=== PATIENT | female | born 1935 | race Caucasian/White ===

== ENCOUNTER 2021-08-13 10:09 | Emergency (ER) | payer MEDICARE, OTHER ==
[~2021-08-13] VITALS: Ht 162.6 cm; Wt 75.0 kg
[2021-08-13 10:15] VITALS: BP 180/84
[2021-08-13] MEDS ORDERED: PRED20TA PO (10:32)
--- NOTE | 2021-08-13 10:32 | PHYS DOC ---
Past Medical History Past Medical History: Hypertension Past Surgical History: No Surgical History Smoking Status: Never Smoker Alcohol Use: None Drug Use: None General Adult EDM: Chief Complaint: FINGER INJURY HPI: HPI: Patient is a 86 year old female who presents with approximately 1 week of right middle finger swelling 2+ without injury. She states that she does have rheumatoid arthritis and it is what it feels like to her. She can bend at all joints and extend it fully. Is not tender. She states only hurts when she bends the finger. She states that her vice president lending just retired. She states she is trying to get into another one but they are not returning her phone calls. She does have a primary care provider that she has not been to for this. She states that her retired vice president lending was trying to get her off the methotrexate because she had not had a flare in a while so she had some at home. She states she start taking that again recently and ibuprofen. She is denying pain at this time. She denies numbness or tingling or weakness in the joint. Review of Systems: Review of Systems: Constitutional: Denies fever or chills. [] Eyes: Denies change in visual acuity. [] HENT: Denies nasal congestion or sore throat. [] Respiratory: Denies cough or shortness of breath. [] Cardiovascular: Denies chest pain or +right middle finger edema. [] GI: Denies abdominal pain, nausea, vomiting, bloody stools or diarrhea. [] : Denies dysuria. [] Musculoskeletal: Denies back pain or +right middle finger joint pain. [] Integument: Denies rash. [] Neurologic: Denies headache, focal weakness or sensory changes. [] Endocrine: Denies polyuria or polydipsia. [] Lymphatic: Denies swollen glands. [] Psychiatric: Denies depression or anxiety. [] Heart Score: C/O Chest Pain: No Allergies: Allergies: Allergies Coded Allergies Type Severity Reaction Last Updated Verified Amoxicillin Allergy Intermediate rash itching 04/29/14 No Physical Exam: PE: Constitutional: Well developed, well nourished, no acute distress, non-toxic appearance. [] HENT: Normocephalic, atraumatic, bilateral external ears normal, oropharynx moist, no oral exudates, nose normal. [] Eyes: PERRLA, EOMI, conjunctiva normal, no discharge. [] Neck: Normal range of motion, no tenderness, supple, no stridor. [] Cardiovascular:Heart rate regular rhythm, no murmur [] Lungs & Thorax: Bilateral breath sounds clear to auscultation [] Abdomen: Bowel sounds normal, soft, no tenderness, no masses, no pulsatile masses. [] Skin: Warm, dry, no erythema, no rash. [] Back: No tenderness, no CVA tenderness. [] Extremities: No tenderness, no cyanosis, no clubbing, ROM intact, right middle finger 2+ edema. [] Neurologic: Alert and oriented X 3, normal motor function, normal sensory function, no focal deficits noted. [] Psychologic: Affect normal, judgement normal, mood normal. [] Current Patient Data: Vital Signs: Vital Signs Date Time Temp Pulse Resp B/P (MAP) Pulse Ox O2 Delivery O2 Flow Rate FiO2 08/13/21 10:15 98.4 94 18 180/84 (116) 98 Room Air 98.4 EKG: EKG: [] Radiology/Procedures: Radiology/Procedures: [] Course & Med Decision Making: Course & Med Decision Making Pertinent Labs and Imaging studies reviewed. (See chart for details) See HPI. Alert and oriented x4. Ambulatory steady gait. Speaks in full clear sentences. She can fully bend the finger at all joints of the right middle finger and extend it fully. Cap refill less than 2 seconds. Radial pulse strong are present. No wound she denies any injury. There is no deformity in any joints. She denies any kind of fever or heat to the joint. There is no redness, wounds or heat to the finger. She will be given strict return precautions. She is to continue taking her methotrexate, ibuprofen. I will give her a steroid to take. [] Kierstenon Disclaimer: Mitch Disclaimer: This electronic medical record was generated, in whole or in part, using a voice recognition dictation system. Departure Departure Impression: Primary Impression: Finger swelling Disposition: HOME / SELF CARE / HOMELESS Condition: STABLE Referrals: ELIZABET MCFARLANE (PCP) Patient Instructions: Medical Screening Exam Additional Instructions: Follow-up with your primary care or the vice president lending soon as possible. If you are unable to get into the vice president lending soon enough he can go to your primary care provider. Continue taking all medications as prescribed. If you begin having increased swelling, increased pain, cannot bend the finger or there is numbness, redness and tenderness return to the emergency room. Scripts Prednisone (PREDNISONE) 20 Mg Tablet 1 TAB PO BID, #10 TAB Prov: DEJON LINK APRN 08/13/21 DEJON LINK APRN Aug 13, 2021 10:32
== END 2021-08-13 10:34 | disposition home or self-care (01) ==
LOC: ER 10:09
DX: R22.31 Localized swelling, mass and lump, right upper limb (principal); M79.644 Pain in right finger(s); I10 Essential (primary) hypertension; M06.9 Rheumatoid arthritis, unspecified; Z88.1 Allergy status to other antibiotic agents
CPT/HCPCS: 99283